=== PATIENT | male | born 1985 | race Caucasian/White ===

== ENCOUNTER 2019-03-23 11:10 | Emergency (ER) | payer MEDICAID ==
[~2019-03-23] VITALS: Ht 170.2 cm; Wt 102.1 kg
[2019-03-23 11:16] VITALS: BP 140/87; Ht 170.2 cm; Wt 102.1 kg
== END 2019-03-23 12:39 | disposition left against medical advice (07) ==
LOC: ED 11:10
DX: Z53.21 Procedure and treatment not carried out due to patient leaving prior to being seen by health care provider (principal)